=== PATIENT | female | born 1965 | race Caucasian/White ===

== ENCOUNTER → 2022-03-16 08:30 | Outpatient (BNVA) | payer OTHER, SELFPAY | PROVIDERS: PCP Nurse Practitioner; Referring Provider Nurse Practitioner; Visit Provider Internal Medicine | DX: R23.8 Other skin changes (principal); R25.2 Cramp and spasm; Z11.59 Encounter for screening for other viral diseases; Z79.899 Other long term (current) drug therapy; Z98.84 Bariatric surgery status; M45.0 Ankylosing spondylitis of multiple sites in spine | CPT/HCPCS: 80053; 81003; 82024; 82306; 82310; 82550; 82595; 82607; 82784; 83516; 83735; 83970; 84100; 84155; 84165; 84439; 84443; 85025; 85651; 86036; 86140; 86160; 86162; 86200; 86235; 86255; 86376; 86431; 86704; 86803; 86812; 87340; 99204 ==

== ENCOUNTER → 2022-04-05 14:22 | Outpatient (BNVA) | payer OTHER, SELFPAY | PROVIDERS: PCP Nurse Practitioner; Visit Provider Internal Medicine | DX: R76.8 Other specified abnormal immunological findings in serum (principal); R23.8 Other skin changes; R25.2 Cramp and spasm; Z98.84 Bariatric surgery status | CPT/HCPCS: 99214 ==

== ENCOUNTER → 2022-06-29 16:03 | Outpatient (BNVA) | payer OTHER, SELFPAY | PROVIDERS: PCP Nurse Practitioner; Visit Provider Internal Medicine | DX: R76.8 Other specified abnormal immunological findings in serum (principal); R23.9 Unspecified skin changes; Z98.84 Bariatric surgery status | CPT/HCPCS: 36415; 72040; 80053; 84439; 84443; 85025; 85651; 86140; 99213; 99214 ==